=== PATIENT | female | born 1960 | race Caucasian/White ===

== ENCOUNTER → 2016-06-09 10:54 | Outpatient (CLI) | payer MEDICARE, SELFPAY | END | disposition home or self-care (01) | LOC: D.US 06-03 09:30 | DX: R49.0 Dysphonia (principal) ==

== ENCOUNTER → 2016-07-31 15:52 | Outpatient (CLI) | payer MEDICARE ==
[2016-07-31 17:28] LABS: T4 THYROXINE 8.6 ug/dL (4.7-13.3); THYROID STIMULATING HORMONE 0.62 uIU/mL (0.36-3.74)
== END | disposition home or self-care (01) ==
LOC: D.LAB 15:52
PROVIDERS: Internal Medicine Gastroenterology
DX: K31.7 Polyp of stomach and duodenum (principal); K44.9 Diaphragmatic hernia without obstruction or gangrene; K29.70 Gastritis, unspecified, without bleeding; T18.2XXA Foreign body in stomach, initial encounter

== ENCOUNTER → 2016-08-06 10:57 | Outpatient (CLI) | payer MEDICARE | END | disposition home or self-care (01) | LOC: D.NM 10:57 | DX: R10.9 Unspecified abdominal pain (principal) ==

== ENCOUNTER → 2016-08-11 08:13 | Outpatient (CLI) | payer MEDICARE | END | disposition home or self-care (01) | LOC: D.RAD 08:13 | DX: R10.9 Unspecified abdominal pain (principal); R13.10 Dysphagia, unspecified ==

== ENCOUNTER → 2017-02-11 08:24 | Outpatient (CLI) | payer OTHER | END | disposition home or self-care (01) | LOC: D.RAD 02-10 08:00 | DX: M54.2 Cervicalgia (principal); R13.10 Dysphagia, unspecified; M27.9 Disease of jaws, unspecified ==

== ENCOUNTER → 2017-03-18 10:15 | Outpatient (CLI) | payer OTHER | END | disposition home or self-care (01) | LOC: D.CT 10:15 | DX: M27.9 Disease of jaws, unspecified (principal) ==